=== PATIENT | female | born 2000 | race Caucasian/White ===

== ENCOUNTER 2018-03-06 22:46 | Emergency (ER) | payer OTHER ==
[~2018-03-06] VITALS: Ht 157.5 cm; Wt 86.2 kg
[2018-03-06 22:50] VITALS: BP 122/64
--- NOTE | 2018-03-06 22:50 | NUR ---
TO BED # 4 AMBULATORY, REPORT GIVEN TO GORDON WESTFALL
--- NOTE | 2018-03-06 23:04 | NUR ---
PT PRESENTS TO ED WITH C/O DYSURIA AND VAGINAL ITCHING WITH LOW BACK PAIN X 1MONTH. PT DENIES N/V/D. DENIES FEVER. 18WEEKS . DENIES VAGINAL BLEEDING OR CRAMPING. PT PLACED IN BED, PENDING MD JOY. PMH--DENIES RX--DENIES
[2018-03-06] MEDS ORDERED: NITROFURANTOIN 100 MG CAP PO ONE (23:05)
--- NOTE | 2018-03-06 23:05 | NUR ---
ER AT BEDSIDE
[2018-03-06 23:36] LABS: APPEARANCE,URINE CLEAR (CLEAR); BILIRUBIN,URINE NEGATIVE (NEGATIVE); BLOOD, URINE NEGATIVE (NEGATIVE); COLOR,URINE YELLOW (YELLOW); LEUKOCYTE ESTERASE ,URINE 2+ (NEGATIVE); NITRITE, URINE NEGATIVE (NEGATIVE); PH,URINE 7.5 (5.0-9.0); UGLUCOSE NEGATIVE (NEGATIVE)
[2018-03-06 23:37] LABS: RBC,URINE 0-5 (RARE) /HPF (0-5)
[2018-03-06 23:42] VITALS: BP 122/64
[2018-03-09 07:13] LABS: CHLAMYDIA TRACHOMATIS AMP DNA Negative (Negative)
== END 2018-03-06 23:42 | disposition home or self-care (01) ==
LOC: MED 22:46
DX: O23.42 Unspecified infection of urinary tract in pregnancy, second trimester (principal); Z3A.18 18 weeks gestation of pregnancy
CPT/HCPCS: 36415; 81001; 81025; 87086; 87210; 87491; 99283